=== PATIENT | female | born 1980 | race Caucasian/White ===

== ENCOUNTER 2016-10-16 11:59 | Outpatient (CLI) | payer BC ==
[2016-10-16] MEDS ORDERED: LACT1CAP62 PO (13:19)
[2016-10-16] MEDS ORDERED: PREN-8 PO (13:19)
[2016-10-17] MEDS ORDERED: HYDR-3812 PO (08:58)
[2016-10-17] MEDS ORDERED: IBUP-1773 PO (08:58)
[2016-10-17] MEDS ORDERED: FERR-74 PO (08:58)
[2016-10-17] MEDS ORDERED: DOCU100C37 PO (08:58)
== END 2016-10-16 13:24 ==
LOC: PREOP 11:59
PROVIDERS: ATTEND Obstetrics & Gynecology
DX: Z01.812 Encounter for preprocedural laboratory examination (principal); O30.033 Twin pregnancy, monochorionic/diamniotic, third trimester; Z3A.00 Weeks of gestation of pregnancy not specified

== ENCOUNTER 2016-10-17 06:08 | Inpatient (IN) | payer BC ==
[~2016-10-17] VITALS: Ht 162.6 cm; Wt 72.6 kg
[~2016-10-17 06:08] MED LIST: LACT1CAP62 PO; PREN-8 PO; ceFAZolin 2 GM/50 ML NS 50 ML ONE
[2016-10-17] MEDS ORDERED: LACTATED RINGERS 1,000 ML IV PRN (06:12)
--- OUTSIDE RECORDS SUMMARY | 2016-10-17 06:13 | XMS REPORT | Clinical Summary ---
Author Author [facility] Organization [facility] Address Unknown Phone Unavailable Care Team Providers Care Welder Oxyhydrogen Name Role Phone PCP Unavailable Source Comments Some departments are not documenting in the electronic medical record. If you do not see the information that you expected, contact Release of Information in the Health Information Management department at [phone] for further assistance in locating additional records.[facility] Allergies Not on File Current Medications Not on file Active Problems Not on file Encounters Date Type Specialty Care Team Description 09/19/2016 Clinical High Risk Monochorionic diamniotic Support twin gestation in third trimester (Primary Dx) 09/05/2016 Clinical High Risk Monochorionic diamniotic Support twin gestation in third trimester (Primary Dx) 08/22/2016 Clinical High Risk Monochorionic diamniotic Support twin gestation in third trimester (Primary Dx) 08/08/2016 Clinical High Risk Monochorionic diamniotic Support twin gestation in second trimester (Primary Dx) 07/25/2016 Clinical High Risk Twins (Primary Dx) Support from Last 3 Months Social History Tobacco Use Types Packs/Day Years Used Date Never Assessed Sex Assigned at Date Recorded Not on file Last Filed Vital Signs Not on file Plan of Treatment Health Maintenance Due Date Last Done Comments PHYSICAL (COMPREHENSIVE) 1988 EXAM PERTUSSIS VACCINE 1992 TETANUS VACCINE 1998 CERVICAL CANCER SCREENING 08/20/2011 INFLUENZA VACCINE 11/08/2016 Results * ULTRASOUND [facility] ORDER (09/19/2016) Only the most recent of 5 results within the time period is included. Specimen Performing Laboratory IN CLINIC from Last 3 Months
--- OUTSIDE RECORDS SUMMARY | 2016-10-17 06:13 | XMS REPORT | Encounter Summary ---
Author Author [facility] Organization [facility] Address Unknown Phone Unavailable Care Team Providers Care Track Welder Name Role Phone PCP Unavailable Reason for Visit * Reason Comments Ultrasound Encounter Details Date Type Department Care Team Description 08/22/2016 Clinical [facility] Monochorionic diamniotic Support Physicians - OBGYN twin gestation in third [address] MED trimester (Primary Dx) OFFICE BLDG 5TH [place] [address] Social History Tobacco Use Types Packs/Day Years Used Date Never Assessed Sex Assigned at Date Recorded Not on file as of this encounter Progress Notes * Lore Santana MA - 09/18/2016 8:55 AM CDT Keely Richey presents for an ultrasound encounter. Past Medical , Surgical, Family & Social History; Medications & Allergies contained in the electronic record below were not reviewed today and may not be up-to-date. Please see A/S OBGYN report for all documentation related to this encounter. 09/18/2016 Lore Santana MA in this encounter Plan of Treatment Not on fileas of this encounter Results * ULTRASOUND [facility] ORDER (08/22/2016) Specimen Performing Laboratory IN CLINIC in this encounter Visit Diagnoses Diagnosis Monochorionic diamniotic twin gestation in third trimester - Primary in this encounter
--- OUTSIDE RECORDS SUMMARY | 2016-10-17 06:13 | XMS REPORT | Encounter Summary ---
Author Author [facility] Organization [facility] Address Unknown Phone Unavailable Care Team Providers Care Animal Attendants And Trainers Name Role Phone PCP Unavailable Reason for Visit * Reason Comments Ultrasound Encounter Details Date Type Department Care Team Description 08/08/2016 Clinical [facility] Monochorionic diamniotic Support Physicians - OBGYN twin gestation in second [address] MED trimester (Primary Dx) OFFICE BLDG [address]TH [place] [address] Social History Tobacco Use Types Packs/Day Years Used Date Never Assessed Sex Assigned at Date Recorded Not on file as of this encounter Progress Notes * Lore Santana MA - 08/14/2016 8:55 AM CDT Keely Richey presents for an ultrasound encounter. Past Medical , Surgical, Family & Social History; Medications & Allergies contained in the electronic record below were not reviewed today and may not be up-to-date. Please see A/S OBGYN report for all documentation related to this encounter. 08/14/2016 Lore Santana MA in this encounter Plan of Treatment Not on fileas of this encounter Results * ULTRASOUND [facility] ORDER (08/08/2016) Specimen Performing Laboratory IN CLINIC in this encounter Visit Diagnoses Diagnosis Monochorionic diamniotic twin gestation in second trimester - Primary in this encounter
--- OUTSIDE RECORDS SUMMARY | 2016-10-17 06:13 | XMS REPORT | Encounter Summary ---
Author Author [facility] Organization [facility] Address Unknown Phone Unavailable Care Team Providers Care Kelly Machine Operator Name Role Phone PCP Unavailable Reason for Visit * Reason Comments Ultrasound Encounter Details Date Type Department Care Team Description 09/19/2016 Clinical [facility] Monochorionic diamniotic Support Physicians - OBGYN twin gestation in third [address] MED trimester (Primary Dx) OFFICE BLDG [address]TH [place] [address] Social History Tobacco Use Types Packs/Day Years Used Date Never Assessed Sex Assigned at Date Recorded Not on file as of this encounter Progress Notes * Lela Rodriguez MA - 09/19/2016 1:00 PM CDT Keely Richey presents for an ultrasound encounter. Past Medical , Surgical, Family & Social History; Medications & Allergies contained in the electronic record below were not reviewed today and may not be up-to-date. Please see A/S OBGYN report for all documentation related to this encounter. 09/27/2016 Lela Rodriguez MA in this encounter Plan of Treatment Not on fileas of this encounter Results * ULTRASOUND [facility] ORDER (09/19/2016) Specimen Performing Laboratory IN CLINIC in this encounter Visit Diagnoses Diagnosis Monochorionic diamniotic twin gestation in third trimester - Primary in this encounter
--- OUTSIDE RECORDS SUMMARY | 2016-10-17 06:13 | XMS REPORT | Encounter Summary ---
Author Author [facility] Organization [facility] Address Unknown Phone Unavailable Care Team Providers Care Orthopedic Cast Specialist Name Role Phone PCP Unavailable Reason for Visit * Reason Comments Ultrasound Encounter Details Date Type Department Care Team Description 07/25/2016 Clinical [facility] Twins (Primary Dx) Support Physicians - OBGYN [address] [facility] MED OFFICE BLDG [address]TH [place] [address] Social History Tobacco Use Types Packs/Day Years Used Date Never Assessed Sex Assigned at Date Recorded Not on file as of this encounter Progress Notes * Mona Walden MA - 07/27/2016 9:11 AM CDT Keely Richey presents for an ultrasound encounter. Past Medical , Surgical, Family & Social History; Medications & Allergies contained in the electronic record below were not reviewed today and may not be up-to-date. Please see OBGYN report for all documentation related to this encounter. in this encounter Plan of Treatment Not on fileas of this encounter Results * ULTRASOUND [facility] ORDER (07/25/2016) Specimen Performing Laboratory IN CLINIC in this encounter Visit Diagnoses Diagnosis Twins - Primary Twin , unspecified as to episode of care in this encounter
--- OUTSIDE RECORDS SUMMARY | 2016-10-17 06:13 | XMS REPORT | Encounter Summary ---
Author Author [facility] Organization [facility] Address Unknown Phone Unavailable Care Team Providers Care Color Artist Name Role Phone PCP Unavailable Reason for Visit * Reason Comments Ultrasound Encounter Details Date Type Department Care Team Description 09/05/2016 Clinical [facility] Monochorionic diamniotic Support Physicians - OBGYN twin gestation in third [address] MED trimester (Primary Dx) OFFICE [address]LDG [address]TH [place] [address] Social History Tobacco Use Types Packs/Day Years Used Date Never Assessed Sex Assigned at Date Recorded Not on file as of this encounter Progress Notes * Lela Rodriguez MA - 09/24/2016 4:11 PM CDT Keely Richey presents for an ultrasound encounter. Past Medical , Surgical, Family & Social History; Medications & Allergies contained in the electronic record below were not reviewed today and may not be up-to-date. Please see A/S OBGYN report for all documentation related to this encounter. 09/24/2016 Lela Rodriguez MA in this encounter Plan of Treatment Not on fileas of this encounter Results * ULTRASOUND [facility] ORDER (09/05/2016) Specimen Performing Laboratory IN CLINIC in this encounter Visit Diagnoses Diagnosis Monochorionic diamniotic twin gestation in third trimester - Primary in this encounter
[2016-10-17] MEDS ORDERED: FAMOTIDINE 20MG/2ML IV (PEPCID) IV ONE (06:15)
[2016-10-17] MEDS ORDERED: METOCLOPRAMIDE INJ 10 MG/2 ML (REGLAN) IV ONE (06:15)
[2016-10-17] MEDS ORDERED: CITRIC ACID/SOB CIT (BICITRA) 30 ML UDC PO ONE (06:15)
[2016-10-17 06:16] VITALS: BP 125/70
[2016-10-17 06:44] LABS: BASOPHILS % (AUTO) 0 % (0-10); EOSINOPHILS # (AUTO) 0.1 10^3/uL (0.0-0.3); EOSINOPHILS % (AUTO) 1 % (0-10); LYMPHOCYTES # (AUTO) 1.7 X 10^3 (1.0-4.0); LYMPHOCYTES % (AUTO) 13 % (12-44); MEAN CORPUSCULAR HEMOGLOBIN 27 PG (25-34); MEAN CORPUSCULAR HGB CONC 31 G/DL (32-36); MEAN CORPUSCULAR VOLUME 87 FL (80-99); MEAN PLATELET VOLUME 10.1 FL (7.4-10.4); MONOCYTES # (AUTO) 1.3 X 10^3 (0.0-1.0); MONOCYTES % (AUTO) 10 % (0-12); NEUTROPHILS # (AUTO) 10.1 X 10^3 (1.8-7.8); NEUTROPHILS % (AUTO) 76 % (42-75); PLATELET COUNT 345 10^3/uL (130-400); RED BLOOD COUNT 3.85 10^6/uL (4.35-5.85); RED CELL DISTRIBUTION WIDTH 14.9 % (10.0-14.5); WHITE BLOOD COUNT 13.3 10^3/uL (4.3-11.0)
[2016-10-17] MEDS ORDERED: OXYTOCIN/NORMAL SALINE 500 ML IV ONE ×2 (06:45)
[2016-10-17] MEDS ORDERED: morphine PF (DURAMORPH) 10 MG/10 ML AMP ONE (06:45)
[2016-10-17] MEDS ORDERED: fentaNYL INJECTION 100 MCG/2 ML AMP ONE (06:48)
--- NOTE | 2016-10-17 07:23 | History & Physical-OB ---
OB - Chief Complaint & HPI Date/Time Date of Admission: Date of Admission: Oct 17, 2016 at 06:08 Time Seen by Provider: 07:00 Chief Complaint/History OB-Reason for Admission/Chief: Section Hx : 1 Hx Para: 0 Expected Date of Delivery: Nov 14, 2016 Gestational Age in Weeks: 36 Indication for : malpresentation Admission Nurse Assessment Rev: Yes History of Labs B neg Antibody neg RI RPR NR HBsAg NR HIV NR GC neg GBS + Allergies and Home Medications Allergies Coded Allergies: Sulfa (Sulfonamide Antibiotics) (Verified Allergy, Unknown, HIVES, 10/16/16) Home Medications Lactobacillus Acidophilus 1 Each Capsule, 1 EACH PO DAILY, (Reported) Vit W-Ca,Fe,FA(<1 mg) 1 Each Tablet, 1 EACH PO DAILY, (Reported) OB - History Hx of Present Care: Yes Ultrasounds: Abnormal US findings (20% growth discordance) Obstetrical Complications: Other ([place] Di Twins) Medical Complications: None Patient Past Medical History n/a Social History/Family History Alcohol Use: Denies Use Recreational Drug Use: No OB - Admission Exam Physical Exam Date Seen by Provider: Oct 17, 2016 Time Seen by Provider: 07:10 Vitals: Vital Signs 10/17/16 06:16 Temp 99.0 Pulse 125 Resp 18 B/P (MAP) 125/70 O2 Delivery Room Air HEENT: NCAT Heart: Rhythm Normal Lungs: Clear Abdomen: Gravid Extremities: Normal Reflexes: Normal Membranes: Intact Heart Rate: 130's Accelerations: Accelerations Present Decelerations: No Decelerations Short Term Variability: Present Grain Distributor Variability: Average (6-25) Contractions on Admission: >10 Minutes Apart Intensity: Mild Labs Laboratory Tests Test 10/17/16 06:21 Range/Units White Blood Count 13.3 H 4.3-11.0 10^3/uL Red Blood Count 3.85 L 4.35-5.85 10^6/uL Hemoglobin 10.3 L 11.5-16.0 G/DL Hematocrit 33 L 35-52 % Mean Corpuscular Volume 87 80-99 FL Mean Corpuscular Hemoglobin 27 25-34 PG Mean Corpuscular Hemoglobin Concent 31 L 32-36 G/DL Red Cell Distribution Width 14.9 H 10.0-14.5 % Platelet Count 345 130-400 10^3/uL Mean Platelet Volume 10.1 7.4-10.4 FL Neutrophils (%) (Auto) 76 H 42-75 % Lymphocytes (%) (Auto) 13 12-44 % Monocytes (%) (Auto) 10 0-12 % Eosinophils (%) (Auto) 1 0-10 % Basophils (%) (Auto) 0 0-10 % Neutrophils # (Auto) 10.1 H 1.8-7.8 X 10^3 Lymphocytes # (Auto) 1.7 1.0-4.0 X 10^3 Monocytes # (Auto) 1.3 H 0.0-1.0 X 10^3 Eosinophils # (Auto) 0.1 0.0-0.3 10^3/uL Basophils # (Auto) 0.0 0.0-0.1 10^3/uL OB - Assessment/Plan/Diagnosis Assessment Assessment: section Plan Plan: Section Discharge Diagnosis Diagnosis: 36 yo 36 weeks [place] Twins Malpresentation Breech/oblique GBS pos REGINALD MORA DO Oct 17, 2016 07:23
[2016-10-17] MEDS ORDERED: BUPIVACAINE 0.5% 30 ML (SENSORCAINE) VIAL ONE (07:41)
[2016-10-17] MEDS ORDERED: LIDOCAINE PF 2% 5 ML (XYLOCAINE) VIAL ONE (08:06)
[2016-10-17] MEDS ORDERED: LACTATED RINGERS 1,000 ML IV ONE ×2 (08:28→12:48)
[2016-10-17] MEDS: KETOROLAC 30 MG/ML VIAL IVP SCH ×3 (08:30→23:20)
[2016-10-17] MEDS ORDERED: OXYTOCIN/NORMAL SALINE 500 ML IV SCH (08:49)
--- NOTE | 2016-10-17 08:55 | Discharge Inst-Women's Service ---
Discharge Inst-Women's Serv Depart Medication/Instructions New, Converted or Re-Newed RX: RX on Chart Consults/Follow Up Additional Follow Up: Yes Orders/Referrals Dr. España in 7-10 days and in 6 weeks Activity Activity: Activity as Tolerated Driving Instructions: No Driving for 1 Week NO SMOKING: NO SMOKING Nothing Inside Vagina: No Douching, No [place], No Tampons Diet Discharge Diet: No Restrictions Symptoms to Report to : Bleeding Excessive, Pain Increased, Fever Over 101 Degrees F, Vaginal Bleeding Increase, Questions/Concerns For Any Problems or Questions: Contact Your Physician Skin/Wound Care Infection Signs and Symptoms: Increased Redness, Foul Odor of Wound, Increased Drainage, Skin Itchy or Has a Rash, Increased Swelling, Temperature Above 101 F Operative Area Clean and Dry: Keep Incision Clean/Dry Stitches/Domenic/Dermabond: Dermabond, Care of Stitches Bathing Instructions: REGINALD Troy DO Oct 17, 2016 08:55
[2016-10-17] MEDS ORDERED: DOCU100C37 PO (08:58)
[2016-10-17] MEDS ORDERED: FERR-74 PO (08:58)
[2016-10-17] MEDS ORDERED: HYDR-3812 PO (08:58)
[2016-10-17] MEDS ORDERED: IBUP-1773 PO (08:58)
[2016-10-17] MEDS ORDERED: HYDROmorphone (DILAUDID) 2 MG/ML VIAL IVP PRN (09:00)
[2016-10-17] MEDS ORDERED: HYDROcodone/APAP 5 MG/325 MG (LORTAB) TAB PO PRN (09:00)
[2016-10-17] MEDS ORDERED: ONDANSETRON 4 MG/2 ML (SDV) Z0FRAN IVP PRN (09:00)
[2016-10-17] MEDS ORDERED: TETANUS,DIPTH,PERTUSS P/F (BOOSTRIX) 0.5 ML VIAL IM SCH (09:00)
[2016-10-17] MEDS ORDERED: MEASLES,MUMPS,RUBELLA 1 EA INJ SC SCH (09:00)
--- NOTE | 2016-10-17 09:12 | Progress Note-Post Operative ---
Post-Operative Progess Note Surgeon (s)/Photographic Process Worker (s) Surgeon REGINALD MORA DO Photographic Process Worker: Lyndsey Torres Pre-Operative Diagnosis [place] Di Twins at 36 weeks, Malpresentation Post-Operative Diagnosis same Procedure & Operative Findings Date of Procedure 10/17/16 Procedure Performed/Findings UOP: 30 Fluid: 1300 mL LR Findings: Live female infants First (Fetus B) APGARs: 7/9 Weight 5lbs 13 oz/ Second (Fetus A) APGARs: 8/9 Weight 5lbs 9 oz Grossly normal appearing uterus tubes and ovaries. OPERATIVE REPORT IN DETAIL: Once in the operating room, spinal analgesia was found to be adequate, after epidural was placed subsequently due to initial failed test. She was placed in the supine position with leftward tilt, prepped and draped in normal sterile fashion. A timeout was performed and then a Pfannenstiel skin incision was made the knife and carried down to the underlying fascia using a Bovie cautery. The fascial incision is extended laterally using Bovie cautery. The superior aspect of the fascial incision is then grasped with Mihaela clamps, tented upward and dissected off the overlying rectus muscles. The inferior aspect of the fascial incision is then grasped with Mihaela clamps, tented upward and dissected off the underlying rectus muscles. The rectus muscles were in midline using blunt traction. The peritoneum is identified and entered bluntly and this peritoneal incision is extended using blunt traction. An Akshat ring retractor is then placed within the in the peritoneal incision and excellent lateral sidewall retraction is offered after doing so. I then make a low transverse incision through the vesicouterine peritoneum using a knife and bluntly dissect the bladder flap down off the lower uterine segment. I proceed with myotomy using the knife until membranes are visualized. I extend the incision laterally and superiorly using bandage scissors. Fetus B is found presenting to the incision first in the vertex/oblique presentation. I then place my hand within the uterine cavity and elevate the infant's head up to the incision. With gentle fundal pressure, the 's head is delivered through to the incision. It is bulb suctioned at delivery. Anterior posterior shoulders are delivered and is then brought onto the operative field where the cord is dually clamped and cut. The is taken off the field by Dr. Vogt. The cord is marked with one clamp. The cord blood is collected for analysis. AROM is performed using an allis clamp on Fetus A who is engaged in the pelvis in the complete breech presentation. The infants feet are grasped and brought through the incision where the is delivered up to it's torso. I then rotate the infant to back up and deliver the arms by sweeping them across the chest. With extension of the neck the infant's head is then delivered through the incision. Cord is dually clamped and cut, and marked with two clamps. Cord blood is collected. is handed off to Dr. Tracy. Three vessel cord with intact twin placenta is delivered spontaneously thereafter. IV Pitocin is initiated to facilitate uterine contraction. The uterine fundus becomes firmer with bimanual massage. The uterus is exteriorized and cleared of all endometrial, clots and debris. The uterine incision is then closed using 0 Vicryl suture in a running lock fashion. A second layer of imbricating 0 Monocryl is placed. Excellent hemostasis is noted after doing so. I then placed intercede antiadhesive over my low transverse incision after copiously irrigating the pelvis using normal saline. I then proceed with closing the peritoneum after removing the Akshat ring retractor. The peritoneum is closed using 3-0 Vicryl suture in a running fashion. The muscles are reapproximated using 3-0 Vicryl suture in an interrupted fashion. The fascia is reapproximated 0 Vicryl suture in a running fashion. The subcutaneous tissues reapproximated with 3-0 plain interrupted subcutaneous stitch and the skin is reapproximated using 4-0 Monocryl in a running, subcuticular. Dermabond is applied to the incision, a sterile dressing and adhesive white tape. The patient tolerated the procedure well and was taken to the recovery area in stable condition. Lap and sponge counts were correct at the end of the procedure. Instrument count is correct as well. 1 gram of Ancef was given preoperatively for infection prophylaxis. Anesthesia Type spinal with epidural due to inadequate block Estimated Blood Loss Estimated blood loss (mL): 1000 Specimens/Packing Specimens Removed placenta REGINALD MORA Oct 17, 2016 09:12
[2016-10-17 09:24] VITALS: BP 104/97
[2016-10-17] MEDS ORDERED: fentaNYL INJECTION 100 MCG/2 ML AMP INJ ONE (10:30)
[2016-10-17] MEDS ORDERED: morphine PF (DURAMORPH) 10 MG/10 ML AMP INJ ONE (10:30)
[2016-10-17] MEDS ORDERED: ONDANSETRON 4 MG/2 ML (SDV) Z0FRAN IV PRN ×2 (10:30→13:00)
[2016-10-17] MEDS ORDERED: NALOXONE 0.4 MG/ML 1 ML (NARCAN) VIAL IV PRN ×2 (10:30→13:00)
[2016-10-17] MEDS ORDERED: EPIDURAL (SUFENTA 0.6MCG/ML BUPIVA 0.125%) 100 ML BAG EPI SCH (13:00)
[2016-10-17 13:29] VITALS: BP 126/79
[2016-10-17 17:49] VITALS: BP 143/97
[2016-10-17 19:40] VITALS: BP 124/84
[2016-10-17] MEDS: DOCUSATE SODIUM 100 MG (COLACE) CAP PO SCH (23:20)
[2016-10-17 23:41] VITALS: BP 130/80
[2016-10-18 04:35] VITALS: BP 119/77
[2016-10-18] MEDS: CATHETER FLUSH 10 ML SYR IV SCH ×2 (05:46→14:04)
[2016-10-18] MEDS: KETOROLAC 30 MG/ML VIAL IVP SCH (05:46)
[2016-10-18 06:47] LABS: BASOPHILS % (AUTO) 0 % (0-10); EOSINOPHILS % (AUTO) 0 % (0-10); LYMPHOCYTES # (AUTO) 1.1 X 10^3 (1.0-4.0); LYMPHOCYTES % (AUTO) 8 % (12-44); MEAN CORPUSCULAR HEMOGLOBIN 27 PG (25-34); MEAN CORPUSCULAR HGB CONC 31 G/DL (32-36); MEAN CORPUSCULAR VOLUME 86 FL (80-99); MEAN PLATELET VOLUME 9.8 FL (7.4-10.4); MONOCYTES # (AUTO) 0.9 X 10^3 (0.0-1.0); MONOCYTES % (AUTO) 7 % (0-12); NEUTROPHILS # (AUTO) 11.8 X 10^3 (1.8-7.8); NEUTROPHILS % (AUTO) 85 % (42-75); PLATELET COUNT 291 10^3/uL (130-400); RED BLOOD COUNT 3.28 10^6/uL (4.35-5.85); RED CELL DISTRIBUTION WIDTH 14.9 % (10.0-14.5); WHITE BLOOD COUNT 13.9 10^3/uL (4.3-11.0)
[2016-10-18 08:15] VITALS: BP 126/81
--- NOTE | 2016-10-18 08:40 | Progress Note-Standard ---
Standard Progress Note Progress Notes/Assess & Plan Date Seen by Provider: Oct 18, 2016 Time Seen by Provider: 08:25 Progress/Assessment & Plan Patient doing well POD 1 PLTCS for malpresentation of twins (mono-di). Ambulating and voiding freely. No lightheadedness this morning, but had some yesterday. Lochia is light, pain is well controlled. Vital Sign - Last 24 Hours 10/17/16 10/17/16 10/17/16 10/17/16 09:24 13:29 17:49 19:40 Temp 97.6 98.3 98.2 97.9 Pulse 95 111 106 109 Resp 20 20 20 18 B/P (MAP) 104/97 126/79 143/97 124/84 Pulse Ox 94 99 O2 Delivery Room Air Room Air 10/17/16 10/18/16 23:41 04:35 Temp 98.4 99.2 Pulse 113 108 Resp 18 17 B/P (MAP) 130/80 119/77 Pulse Ox 97 99 O2 Delivery Room Air Room Air Intake and Output 10/17/16 10/17/16 10/18/16 15:00 23:00 07:00 Intake Total 550 ml 4000 ml 1200 ml Output Total 30 ml 2950 ml 2800 ml Balance 520 ml 1050 ml -1600 ml Incision: c/d/i Laboratory Tests Test 10/18/16 06:20 Range/Units White Blood Count 13.9 H 4.3-11.0 10^3/uL Red Blood Count 3.28 L 4.35-5.85 10^6/uL Hemoglobin 8.7 L 11.5-16.0 G/DL Hematocrit 28 L 35-52 % Mean Corpuscular Volume 86 80-99 FL Mean Corpuscular Hemoglobin 27 25-34 PG Mean Corpuscular Hemoglobin Concent 31 L 32-36 G/DL Red Cell Distribution Width 14.9 H 10.0-14.5 % Platelet Count 291 130-400 10^3/uL Mean Platelet Volume 9.8 7.4-10.4 FL Neutrophils (%) (Auto) 85 H 42-75 % Lymphocytes (%) (Auto) 8 L 12-44 % Monocytes (%) (Auto) 7 0-12 % Eosinophils (%) (Auto) 0 0-10 % Basophils (%) (Auto) 0 0-10 % Neutrophils # (Auto) 11.8 H 1.8-7.8 X 10^3 Lymphocytes # (Auto) 1.1 1.0-4.0 X 10^3 Monocytes # (Auto) 0.9 0.0-1.0 X 10^3 Eosinophils # (Auto) 0.0 0.0-0.3 10^3/uL Basophils # (Auto) 0.0 0.0-0.1 10^3/uL Diagnosis: POD 1 PLTCS Acute blood loss anemia P: Replace iron Continue routine PO care REGINALD MORA DO Oct 18, 2016 8:40 am
[2016-10-18] MEDS ORDERED: IBUPROFEN 600 MG (MOTRIN) TAB PO SCH (09:00)
[2016-10-18] MEDS: DOCUSATE SODIUM 100 MG (COLACE) CAP PO SCH ×2 (09:06→21:43)
[2016-10-18 12:19] VITALS: BP 122/82
[2016-10-18] MEDS: IBUPROFEN 600 MG (MOTRIN) TAB PO SCH ×3 (12:20→23:55)
--- NOTE | 2016-10-18 14:37 | Anesthesia-Regional Post-Op ---
Regional Patient Condition Mental Status: Alert, Oriented x3 Circulation: Same as Pre-Op Headache: Absent Sensation: Full Recovery Motor Block: Absent Post Op Complications Complications None Follow Up Care/Instructions Patient Instructions None needed. Anesthesia/Patient Condition Patient is doing well, no complaints, stable vital signs, no apparent adverse anesthesia problems. WAGNER HURST DO Oct 18, 2016 14:37
[2016-10-18 16:45] VITALS: BP 131/78
[2016-10-18] MEDS: FERROUS SULF 325 MG (IRON) TAB PO SCH (18:37)
[2016-10-19] VITALS: BP 118/80
[2016-10-19] MEDS: FERROUS SULF 325 MG (IRON) TAB PO SCH (05:52)
[2016-10-19] MEDS: IBUPROFEN 600 MG (MOTRIN) TAB PO SCH ×2 (05:52→12:59)
[2016-10-19 06:00] VITALS: BP 106/71
[2016-10-19] MEDS: CATHETER FLUSH 10 ML SYR IV SCH ×2 (06:14→06:15)
[2016-10-19] MEDS: DOCUSATE SODIUM 100 MG (COLACE) CAP PO SCH ×2 (06:15→08:20)
--- NOTE | 2016-10-19 10:38 | Postpartum Progress Note ---
Post Op Post-operative Day #[2 s/p PLTCS, mono/di twins Subjective: Patient is without complaints. Ambulating, voiding after will removed. Tolerating a regular diet without nausea or vomiting. Normal lochia. Pain is well controlled with oral pain medications. Passing flatus. Objective: Vital Sign - Last 12Hours 10/19/16 10/19/16 00:00 06:00 Temp 98.1 98.5 Pulse 100 97 Resp 20 20 B/P (MAP) 118/80 106/71 Pulse Ox 100 100 Intake and Output 10/19/16 00:00 Intake Total 3000 ml Balance 3000 ml Physical Exam: General - Alert and oriented, no apparent distress Abdomen - Soft, appropriately tender to palpation, non-distended, fundus firm at umbilicus Incision - clean, dry and intact; no erythema or induration, no drainage Extremities - no edema, negative Shirlene's bilaterally Assessment: 1. post-operative day # 2, status post PLTCS, twins. Recovering well, hemodynamically stable Acute blood loss anemia [] Plan: Routine post-operative care. Encourage breast feeding. Encourage ambulation. VTE prophylaxis: SCDs. Ferrous sulfate supplementation. Plan for discharge [] Vitals - Labs Vital Signs - I&O Vital Signs Date Time Temp Pulse Resp B/P (MAP) Pulse Ox O2 Delivery O2 Flow Rate FiO2 10/19/16 06:00 98.5 97 20 106/71 100 10/19/16 00:00 98.1 100 20 118/80 100 10/18/16 16:45 99.3 78 20 131/78 100 10/18/16 12:19 99.1 104 20 122/82 100 Room Air I & O 10/19/16 07:00 Intake Total 3600 ml Balance 3600 ml RYAN GARCIA DO Oct 19, 2016 10:38
[2016-10-19 12:00] VITALS: BP 122/80
[2016-10-19 13:48] VITALS: BP 122/80
== END 2016-10-19 13:00 | disposition home or self-care (01) | DRG 765 ==
LOC: LDRP 06:08
PROVIDERS: ADMIT Obstetrics & Gynecology; ATTEND Obstetrics & Gynecology
PROC: 3E0P05Z Introduction of Adhesion Barrier into Female Reproductive, Open Approach (ICD-10-PCS; 2016-10-17)
PROC: 10D00Z1 Extraction of Products of Conception, Low, Open Approach (ICD-10-PCS; principal; 2016-10-17 07:13)
DX: O30.033 Twin pregnancy, monochorionic/diamniotic, third trimester (principal); O99.03 Anemia complicating the puerperium; D62 Acute posthemorrhagic anemia; O32.1XX0 Maternal care for breech presentation, not applicable or unspecified; O32.2XX0 Maternal care for transverse and oblique lie, not applicable or unspecified; O99.820 Streptococcus B carrier state complicating pregnancy; Z3A.36 36 weeks gestation of pregnancy; Z37.2 Twins, both liveborn
CPT/HCPCS: 36415; 85025; 86850; 86900; 86901; 94664

== ENCOUNTER → 2021-11-19 | Outpatient (CLI) | payer BC ==
[~2021-11-19] MED LIST changes: +ACHD5005 PO; +DOCU100C37 PO; +FERR325T18 PO; +IBUP-1773 PO; -ceFAZolin 2 GM/50 ML NS 50 ML ONE
--- NOTE | 2021-11-19 14:10 | Diagnostic Imaging Report ---
INDICATION: Routine screening. COMPARISON: No prior mammograms are available for comparison. This is a baseline study. TECHNIQUE: 2D and 3D bilateral screening mammography was performed with CAD. FINDINGS: Both breasts are heterogeneously dense, limiting the sensitivity of mammography. No mass or malignant-appearing microcalcifications are seen. The axillae are unremarkable. IMPRESSION: No mammographic features suspicious for malignancy are identified. ACR BI-RADS Category 1: Negative. Result letter will be mailed to the patient. Note: At least 10% of breast cancer is not imaged by mammography. Dictated by: Dictated on workstation # [id number]
== END ==
LOC: RAD 10:52
PROVIDERS: ATTEND Obstetrics & Gynecology
DX: Z12.31 Encounter for screening mammogram for malignant neoplasm of breast (principal)
CPT/HCPCS: 77063; 77067

== ENCOUNTER → 2023-01-27 | Outpatient (CLI) | payer BC ==
--- NOTE | 2023-01-28 15:13 | Diagnostic Imaging Report ---
INDICATION: Routine screening. COMPARISON: 11/19/2021. TECHNIQUE: 2D and 3D bilateral screening mammography was performed with CAD. FINDINGS: Both breasts are heterogeneously dense, limiting the sensitivity of mammography. The parenchymal pattern is stable. No mass or malignant-appearing microcalcifications are identified. The axillae are unremarkable. IMPRESSION: No mammographic features suspicious for malignancy are identified. ACR BI-RADS Category 1: Negative. Result letter will be mailed to the patient. Note: At least 10% of breast cancer is not imaged by mammography. Dictated by: Dictated on workstation # [id number]
== END ==
LOC: RAD 09:17
PROVIDERS: ATTEND Nurse Practitioner Women's Health
DX: Z12.31 Encounter for screening mammogram for malignant neoplasm of breast (principal)
CPT/HCPCS: 77063; 77067